=== PATIENT | female | born 1960 | race Caucasian/White ===

== ENCOUNTER 2021-10-26 15:39 | Emergency (ER) | payer SELFPAY ==
[2021-10-26 15:51] VITALS: BP 154/91; PULSE 75; RESP 18; TEMP 36.6; O2SAT 99
--- NOTE | 2021-10-26 16:14 | ED.GENADULT ---
HPI - General Adult General Chief complaint: Skin/Abscess/Foreign Body Stated complaint: Rash History of Present Illness HPI narrative: Patient is a 61-year-old female who presents to the [facility] via POV for evaluation of a generalized rash that began 2 days ago. Patient believes she came in contact with poison carlos alberto while pulling weeds surrounding her tomato garden in her backyard. She reports the rash to be erythematous and pruritic. No relief with nystatin. Benadryl provides some relief. Scratching alleviates itch. Heat worsens symptoms. Denies a history of hypertension, renal insufficiency, diabetes mellitus. Related Data Allergies Allergy/AdvReac Type Severity Reaction Status Date / Time No Known Allergies Allergy Unknown Verified 10/26/21 15:51 Review of Systems Review of Systems: Denies recent/new changes in soaps, perfumes, lotions, detergents, and shampoos. Denies working with chemicals. Denies new or changes in medications/foods. Pertinent negatives fever, chills, sweats, change in appetite, malaise, poor p.o. intake, recent weight loss, change in appetite, myalgias, lymphadenopathy, LOC, dizziness, burning sensation, blistering, swelling, streaking, warmth, lip/tongue/throat swelling, facial swelling, abdominal pain, nausea, vomiting, numbness, tingling, loss of sensation, cough, wheezing, chest pain, and heart palpitations/murmurs. Exam Narrative: GENERAL: Well-appearing, well-nourished, and in no acute distress. HEAD: Normocephalic, atraumatic. No facial swelling appreciated. EYES: PERRLA and EOMI. No evidence of erythema, swelling, or drainage. ENT: Nares clear, no rhinorrhea. Mucous membranes moist and pink. Uvula is midline without erythema and swelling. No evidence of obstruction, swelling, or drooling. Breath odor and voice normal. NECK: Supple. No Lymphadenopathy or nuchal rigidity appreciated. CHEST: Bilateral lung samuels are clear to auscultation. No respiratory distress. No evidence of cough or pleuritic cp upon examination. HEART: Regular rate and rhythm. No murmur, gallop, or rub heard. EXTREMITIES: Normal range of motion. No edema. SKIN: Warm, dry. Rash consistent with poison carlos alberto is sparsely dispersed. no evidence of cellulitis, abscess, streaking, induration,drainage, or bleeding. NEURO: No focal deficits. Alert and oriented x3. Course Course Level of Care: Express Care Visit Vital Signs Vital signs: Vital Signs Temperature 97.8 F 10/26/21 15:51 Pulse Rate 75 10/26/21 15:51 Respiratory Rate 18 10/26/21 15:51 Blood Pressure 154/91 H 10/26/21 15:51 Pulse Oximetry 99 10/26/21 15:51 Oxygen Delivery Room Air 10/26/21 15:51 Temperature 97.8 F 10/26/21 15:51 Pulse Rate 75 10/26/21 15:51 Respiratory Rate 18 10/26/21 15:51 Blood Pressure 154/91 H 10/26/21 15:51 Pulse Oximetry 99 10/26/21 15:51 Oxygen Delivery Room Air 10/26/21 15:51 Due to an elevated blood pressure, I had a detailed discussion with the patient and/or guardian regarding the need for follow-up with their primary care provider within the next 3-4 days. Patient verbalized understanding and agreed. Medical Decision Making Differential Diagnosis Differential Diagnosis: Contact/allergic dermatitis, atopic dermatitis, psoriasis, cellulitis, tinea infection, parasite infection, shingles Vital Signs Vital Signs: Vital Signs Temperature 97.8 F 10/26/21 15:51 Pulse Rate 75 10/26/21 15:51 Respiratory Rate 18 10/26/21 15:51 Blood Pressure 154/91 H 10/26/21 15:51 Pulse Oximetry 99 10/26/21 15:51 Oxygen Delivery Room Air 10/26/21 15:51 Temperature 97.8 F 10/26/21 15:51 Pulse Rate 75 10/26/21 15:51 Respiratory Rate 18 10/26/21 15:51 Blood Pressure 154/91 H 10/26/21 15:51 Pulse Oximetry 99 10/26/21 15:51 Oxygen Delivery Room Air 10/26/21 15:51 Critical Care Time Critical Care Time Critical Care Time: No Discharge Plan Discharge
== END 2021-10-26 16:27 | disposition home or self-care (01) ==
PROVIDERS: Emergency Provider Nurse Practitioner Family; PCP Family Medicine
DX: L23.7 Allergic contact dermatitis due to plants, except food (principal)
CPT/HCPCS: 99213; G0463